=== PATIENT | male | born 1945 | race Caucasian/White ===

== ENCOUNTER 2019-02-10 08:48 | Day surgery (SDC) | payer OTHER ==
[~2019-02-10 08:48] MED LIST: CATAFLAM50 MG PO; CIPRO500 MG PO; PROTONIX40 MG PO; ULTRACET PO
== END 2019-02-10 13:50 | disposition home or self-care (01) ==
LOC: AMB-ENDOS 08:48
DX: K57.30 Diverticulosis of large intestine without perforation or abscess without bleeding (principal); K64.8 Other hemorrhoids

== ENCOUNTER 2022-09-26 06:52 | Day surgery (SDC) | payer OTHER ==
[~2022-09-26 06:52] MED LIST changes: +ALLERGY RELIE15.8 ML NASAL; +ATORVASTATIN CA40 MG; +COZAAR50 MG; +DESLORATADINE5 M1 PO; +DITROPAN XL10 MG PO; +FLOVENT HFA10.6 GM IH; +GLIPIZIDE XL5 MG PO; +GLYXAMBI 10 MG1 EACH PO; +KAPVAY0.1 MG PO; +LASIX20 MG PO; +MONTELUKAST SOD10 MG PO; +TAMS0.4C PO; +TOPROL XL25 MG
[2022-09-26] MEDS ORDERED: PERCOCET 5-3251 EACH PO (13:30)
== END 2022-09-26 18:45 | disposition home or self-care (01) ==
LOC: CIR.AMB 06:52
PROVIDERS: ATTEND Surgery
DX: D35.1 Benign neoplasm of parathyroid gland (principal); E21.0 Primary hyperparathyroidism; Z20.822 Contact with and (suspected) exposure to COVID-19; I10 Essential (primary) hypertension; Z95.1 Presence of aortocoronary bypass graft; J45.909 Unspecified asthma, uncomplicated; E11.9 Type 2 diabetes mellitus without complications; N40.0 Benign prostatic hyperplasia without lower urinary tract symptoms